=== PATIENT | male | born 1990 | race Caucasian/White ===

== ENCOUNTER 2016-09-08 19:57 | Emergency (ER) | payer OTHER ==
[~2016-09-08] VITALS: Ht 182.9 cm; Wt 79.4 kg
--- NOTE | 2016-09-08 20:05 | NUR ---
TO BED 8 A 26 YO MALE BIBRA [address]89 AND PT STATES HE IS SUICIDAL AND STATES HE WANTS TO RIP OUT HIS IV AND BLEED OUT. DENIES HI. VSS. SUICIDE AND SAFETY PRECAUTIONS IN PLACE. ONGOING CLOSE MONITORING. AWAITING FOR ER MD WHITE.
[2016-09-08 20:18] LABS: BASOPHILS # (AUTO) 0.1 /CMM (0.0-0.2); BASOPHILS % (AUTO) 0.6 % (0.0-2.0); EOSINOPHILS # (AUTO) 0.2 /CMM (0.0-0.7); EOSINOPHILS % (AUTO) 2.1 % (0.0-6.0); HEMATOCRIT 43 % (39-51); HEMOGLOBIN 13.8 g/dL (13.5-17.5); LYMPHOCYTES # (AUTO) 1.7 /CMM (0.8-4.8); LYMPHOCYTES % (AUTO) 16.3 % (20.0-44.0); MEAN CORPUSCULAR HEMOGLOBIN 29 PG (26.0-33.0); MEAN CORPUSCULAR HGB CONC 32 g/dl (31.0-36.0); MEAN CORPUSCULAR VOLUME 89 fL (80-96); MONOCYTES # (AUTO) 0.7 /CMM (0.1-1.30); MONOCYTES % (AUTO) 6.8 % (2.0-12.0); NEUTROPHILS # (AUTO) 7.8 /CMM (1.8-8.9); NEUTROPHILS % (AUTO) 74.2 % (43.0-81.0); PLATELET COUNT (AUTO) 277 /CMM (150-450); RED BLOOD CELL COUNT(AUTO) 4.76 MIL/uL (4.5-6.0); WHITE BLOOD COUNT (AUTO) 10.5 K/uL (4.3-11.0)
[2016-09-08 20:21] LABS: APPEARANCE,URINE Clear (CLEAR); BILIRUBIN,URINE Negative (NEGATIVE); BLOOD, URINE Negative Ery/uL (NEGATIVE); COLOR,URINE Yellow (YELLOW); KETONES,URINE Negative (NEGATIVE); LEUKOCYTE ESTERASE ,URINE Negative (NEGATIVE); NITRITE, URINE Negative (NEGATIVE); PROTEIN,URINE Negative (NEGATIVE); UGLUCOSE Negative (NEGATIVE); UROBILINOGEN,URINE 0.2 EU/dL (0.2)
[2016-09-08 20:32] LABS: ACETAMINOPHEN < 2 ug/ml (10-30); ALANINE AMINOTRANSFERASE 30 U/L (12-78); ALBUMIN 3.2 g/dL (3.4-5.0); ALCOHOL, BLOOD < 3 mg/dL (0-0); ALKALINE PHOSPHATASE 58 U/L (46-116); ASPARTATE AMINOTRANSFERASE 17 U/L (15-37); BILIRUBIN,DIRECT 0.1 mg/dL (0.0-0.2); BILIRUBIN,TOTAL 0.3 mg/dL (0.2-1.0); CALCIUM, SERUM 8.6 mg/dL (8.5-10.1); CARBON DIOXIDE 28 mmol/L (21-32); CHLORIDE 104 mmol/L (98-107); CREATININE 1.1 mg/dL (0.6-1.3); GLUCOSE 99 mg/dL (74-106); POTASSIUM 4.1 mmol/L (3.5-5.1); SALICYLATE 2.7 mg/dL (2.8-20.0); SODIUM SERUM 138 mmol/L (136-145); TOTAL PROTEIN, SERUM 7.2 g/dL (6.4-8.2); UREA NITROGEN, BLOOD 15 mg/dL (7-18)
--- NOTE | 2016-09-08 22:27 | NUR ---
patient sleeping at this time, vss. safety measures maintained.
--- NOTE | 2016-09-09 00:02 | NUR ---
Called [facility] intake line and spoke to Ann. Per Ann, they are still reveiwing the packet and working on getting him a bed.
--- NOTE | 2016-09-09 00:43 | NUR ---
[facility] room 623 [id number] [facility] [id number] meena Clayton
--- NOTE | 2016-09-09 00:51 | NUR ---
called med response; ETA 30 min
[2016-09-09 01:03] VITALS: BP 122/68
--- NOTE | 2016-09-09 01:08 | NUR ---
Report given to Caron RENEE for transfer and kari.
--- NOTE | 2016-09-09 01:24 | NUR ---
Report given to ems for transfer and kari. patient remains alert, responsive, walking with steady gait.
== END 2016-09-09 01:26 | disposition short-term general hospital (02) ==
LOC: ER 20:00
DX: R45.851 Suicidal ideations (principal); F31.9 Bipolar disorder, unspecified; F20.9 Schizophrenia, unspecified
CPT/HCPCS: 36415; 80048; 80076; 80305; 80329; 81001; 85025; 99285; A4606; G0480 ×2; Z7610; 81000-TC